=== PATIENT | male | born 1955 | race African-American/Black ===

== ENCOUNTER 2017-01-04 10:13 | Emergency (ER) | payer OTHER ==
[~2017-01-04] VITALS: Ht 175.3 cm; Wt 68.0 kg
[2017-01-04] MEDS ORDERED: NAPROSYN500 MG PO (11:30)
[2017-01-04] MEDS ORDERED: NORCO 5-325 TA1 EACH PO (11:30)
[2017-01-04 12:02] VITALS: BP 153/89
== END 2017-01-04 11:50 | disposition home or self-care (01) ==
LOC: ER 10:13
DX: M25.562 Pain in left knee (principal); F17.210 Nicotine dependence, cigarettes, uncomplicated